=== PATIENT | female | born 1980 | race African-American/Black ===

== ENCOUNTER 2019-08-24 20:07 | Emergency (ER) | payer SELFPAY ==
[2019-08-24] MEDS ORDERED: Lidocaine 1% w/Epinephrine 1:100K 20 ML VIAL ONE (21:14)
[2019-08-24] MEDS ORDERED: Adacel (T-DAP) 0.5 ML SYRINGE ONE (21:54)
== END 2019-08-24 22:38 | disposition home or self-care (01) ==
LOC: ERS 20:07
DX: L02.211 Cutaneous abscess of abdominal wall (principal); F17.210 Nicotine dependence, cigarettes, uncomplicated
CPT/HCPCS: 10060; 87070; 87205; 90471; 90715

== ENCOUNTER 2019-08-25 16:24 | Emergency (ER) | payer SELFPAY | END 2019-08-25 17:10 | disposition home or self-care (01) | LOC: ERS 16:24 | DX: Z48.817 Encounter for surgical aftercare following surgery on the skin and subcutaneous tissue (principal); Z71.6 Tobacco abuse counseling; F17.210 Nicotine dependence, cigarettes, uncomplicated | CPT/HCPCS: 99282 ==

== ENCOUNTER 2019-08-27 13:05 | Emergency (ER) | payer SELFPAY | END 2019-08-27 14:55 | disposition home or self-care (01) | LOC: ERS 13:05 | DX: Z48.01 Encounter for change or removal of surgical wound dressing (principal); F17.210 Nicotine dependence, cigarettes, uncomplicated; Z71.6 Tobacco abuse counseling | CPT/HCPCS: 99406 ==

== ENCOUNTER 2019-08-29 11:04 | Emergency (ER) | payer SELFPAY | END 2019-08-29 11:33 | disposition home or self-care (01) | LOC: ERS 11:04 | DX: Z48.01 Encounter for change or removal of surgical wound dressing (principal); F17.210 Nicotine dependence, cigarettes, uncomplicated; Z79.899 Other long term (current) drug therapy | CPT/HCPCS: 99282 ==

== ENCOUNTER 2019-09-04 23:09 | Emergency (ER) | payer SELFPAY | END 2019-09-04 23:38 | disposition home or self-care (01) | LOC: ERS 23:09 | DX: Z48.817 Encounter for surgical aftercare following surgery on the skin and subcutaneous tissue (principal); F17.210 Nicotine dependence, cigarettes, uncomplicated | CPT/HCPCS: 99282 ==

== ENCOUNTER 2023-11-24 04:09 | Inpatient (IN) | payer SELFPAY ==
[2023-11-24] MEDS ORDERED: Ondansetron PF 4 MG/2 ML Vial IVP PRN (04:46)
[2023-11-24] MEDS ORDERED: Ondansetron ODT 4 MG TAB PO PRN (04:46)
[2023-11-24] MEDS: Acetaminophen 325 MG TAB PO PRN (05:19)
[2023-11-24 05:26] VITALS: BMI 34.8
[2023-11-24 06:12] LABS: Anion Gap 13 mmol/L (10-20); BUN (Urea Nitrogen) 5 mg/dL (7.0-18.7); Calc. Creatinine Clearance 210 mL/min (70-130); Calcium 8.4 mg/dL (7.8-10.44); Carbon Dioxide 23 mmol/L (22-29); Chloride 108 mmol/L (98-107); Estimated GFR 116; Glucose 91 mg/dL (70-105); Potassium 3.5 mmol/L (3.5-5.1); Sodium 140 mmol/L (136-145)
[2023-11-24] MEDS: Famotidine 20 MG TAB PO SCH (07:48)
[2023-11-24 08:05] LABS: #Basophils 0.03 10x3/uL (0.0-0.2); %Basophils 0.4 % (0.0-1.0); %Eosinophils 2.6 % (0.0-10.0); %Lymphocytes 25.4 % (21.0-51.0); %Neutrophils 64.3 % (42.0-75.0); Hemoglobin 6.5 g/dL (12.0-16.0); Mean Corpuscular HGB CONC 27.1 g/dL (32.0-36.0); Mean Corpuscular Hemoglobin 18.8 pg (27.0-31.0); Mean Corpuscular Volume 69.6 fL (78.0-98.0); Mean Platelet Volume 9.8 fL (7.4-10.4); Platelet Count 360 10x3/uL (130-400); RBC Distribution Width 24.2 % (11.5-14.5); Red Blood Cell (RBC) Count 3.45 mill/uL (4.20-5.40)
[2023-11-24] MEDS: Famotidine/PF 20 mg/2ml Vial SLOW IVP SCH (08:19)
[2023-11-24] MEDS: Sodium Ferric Gluconate 250 MG in Sodium Chloride 0.9% 250 ML 250 ML IVPB SCH (08:19)
[2023-11-24 08:47] LABS: Anisocytosis SLIGHT = 6-15 cells HPF (0-5); Hypochromia MODERATE=16-30 cells HPF (0-5); Microcytosis SLIGHT = 6-15 cells HPF (0-5); Platelet Adequacy Comment Platelets Normal; Polychromasia MODERATE = 3-4 cells HPF (0-2); Schistocytes SLIGHT = 2-5 cells HPF (0-1); Target Cells SLIGHT = 2-5 cells HPF (0-1)
[2023-11-24] MEDS ORDERED: fentaNYL PF 100 MCG/2 ML SYRINGE ONE (11:10)
[2023-11-24] MEDS ORDERED: PROPOFOL 20 ML ONE ×2 (11:10→12:27)
[2023-11-24] MEDS ORDERED: Midazolam HCl 2 mg/2 ml Vial ONE (11:10)
[2023-11-24] MEDS ORDERED: Bacitracin Zinc Ointment 30 gm TUBE ONE (12:09)
[2023-11-24] MEDS ORDERED: Bupivacaine PF 0.5% 30 ML VIAL ONE (12:09)
[2023-11-24] MEDS ORDERED: Lidocaine 1% (PF) 30 ML VIAL ONE (12:28)
[2023-11-24] MEDS ORDERED: Ondansetron PF 4 MG/2 ML Vial ONE (13:13)
[2023-11-24] MEDS ORDERED: Clindamycin/D5W 900 mg/50 ml Premix Bag ONE (13:39)
[2023-11-24] MEDS ORDERED: Cyclobenzaprine 10 MG TAB ONE (13:39)
[2023-11-24] MEDS ORDERED: Tamsulosin HCl 0.4 MG CAP ONE (13:41)
[2023-11-24 14:36] LABS: #Basophils Less than 0.03 10x3/uL (0.0-0.2); %Basophils 0.2 % (0.0-1.0); %Eosinophils 1.8 % (0.0-10.0); %Lymphocytes 12.9 % (21.0-51.0); %Monocytes 5.5 % (0.0-10.0); %Neutrophils 79.1 % (42.0-75.0); Hematocrit 25.1 % (36.0-47.0); Hemoglobin 6.9 g/dL (12.0-16.0); Mean Corpuscular HGB CONC 27.5 g/dL (32.0-36.0); Mean Corpuscular Hemoglobin 18.6 pg (27.0-31.0); Mean Corpuscular Volume 67.7 fL (78.0-98.0); Mean Platelet Volume 9.6 fL (7.4-10.4); Platelet Count 346 10x3/uL (130-400); RBC Distribution Width 23.2 % (11.5-14.5); Red Blood Cell (RBC) Count 3.71 mill/uL (4.20-5.40)
[2023-11-24 15:01] LABS: Anisocytosis SLIGHT = 6-15 cells HPF (0-5); Hypochromia SLIGHT = 6-15 cells HPF (0-5); Microcytosis SLIGHT = 6-15 cells HPF (0-5); Platelet Adequacy Comment Platelets Normal; Poikilocytosis SLIGHT = 6-15 cells HPF (0-5); Polychromasia SLIGHT = 2-3 cells HPF (0-2); Spherocytes SLIGHT = 1-5 cells HPF (None Seen)
[2023-11-24 17:19] VITALS: BMI 34.8
[2023-11-24] MEDS: traMADol HCl 50 MG TAB PO PRN (21:06)
[2023-11-25 05:35] LABS: Anion Gap 11 mmol/L (10-20); BUN (Urea Nitrogen) 5 mg/dL (7.0-18.7); Calc. Creatinine Clearance 191 mL/min (70-130); Calcium 8.8 mg/dL (7.8-10.44); Carbon Dioxide 25 mmol/L (22-29); Chloride 108 mmol/L (98-107); Estimated GFR 114; Glucose 104 mg/dL (70-105); Potassium 3.5 mmol/L (3.5-5.1); Sodium 140 mmol/L (136-145)
[2023-11-25 06:37] LABS: #Basophils Less than 0.03 10x3/uL (0.0-0.2); %Basophils 0.1 % (0.0-1.0); %Eosinophils 2.9 % (0.0-10.0); %Monocytes 6.3 % (0.0-10.0); %Neutrophils 71.2 % (42.0-75.0); Hematocrit 23.3 % (36.0-47.0); Hemoglobin 6.3 g/dL (12.0-16.0); Mean Corpuscular Hemoglobin 19.3 pg (27.0-31.0); Mean Corpuscular Volume 71.3 fL (78.0-98.0); Mean Platelet Volume 10.1 fL (7.4-10.4); Platelet Count 310 10x3/uL (130-400); RBC Distribution Width 23.1 % (11.5-14.5); Red Blood Cell (RBC) Count 3.27 mill/uL (4.20-5.40)
[2023-11-25] MEDS: Vancomycin (BATCH) 1.25 GM in Premix 1 BAG IVPB SCH (09:14)
[2023-11-25] MEDS: traMADol HCl 50 MG TAB PO PRN (20:23)
[2023-11-26 05:43] LABS: Vancomycin, Trough 8.9 ug/mL
[2023-11-26 07:37] LABS: Hematocrit 27.7 % (36.0-47.0); Hemoglobin 7.5 g/dL (12.0-16.0); Mean Corpuscular HGB CONC 27.1 g/dL (32.0-36.0); Mean Corpuscular Hemoglobin 20.4 pg (27.0-31.0); Mean Corpuscular Volume 75.5 fL (78.0-98.0); Mean Platelet Volume 9.6 fL (7.4-10.4); Platelet Count 259 10x3/uL (130-400); RBC Distribution Width 25.8 % (11.5-14.5); Red Blood Cell (RBC) Count 3.67 mill/uL (4.20-5.40)
[2023-11-26] MEDS: Amlodipine 5 MG TAB PO SCH (08:03)
[2023-11-26 08:25] LABS: Anisocytosis MODERATE=16-30 cells HPF (0-5); Band 3 % (5-11); Eosinophils 2 % (0-10); Hypochromia MODERATE=16-30 cells HPF (0-5); Lymphocytes 10 % (21-51); Microcytosis SLIGHT = 6-15 cells HPF (0-5); Monocytes 1 % (0-10); Neutrophil 82 % (42-75); Ovalocytes SLIGHT = 2-5 cells HPF (0-1); Platelet Adequacy Comment Platelets Normal; Poikilocytosis MODERATE=16-30 cells HPF (0-5); Polychromasia MARKED = >4 cells HPF (0-2)
[2023-11-26 09:27] LABS: Anion Gap 15 mmol/L (10-20); BUN (Urea Nitrogen) 5 mg/dL (7.0-18.7); Calc. Creatinine Clearance 197 mL/min (70-130); Calcium 8.8 mg/dL (7.8-10.44); Carbon Dioxide 23 mmol/L (22-29); Chloride 105 mmol/L (98-107); Estimated GFR 115; Glucose 97 mg/dL (70-105); Potassium 3.6 mmol/L (3.5-5.1); Sodium 139 mmol/L (136-145)
[2023-11-26] MEDS: Vancomycin (BATCH) 1.25 GM in Premix 1 BAG IVPB SCH (16:39)
[2023-11-27 08:07] LABS: Anion Gap 11 mmol/L (10-20); BUN (Urea Nitrogen) 5 mg/dL (7.0-18.7); Calc. Creatinine Clearance 202 mL/min (70-130); Calcium 8.9 mg/dL (7.8-10.44); Carbon Dioxide 27 mmol/L (22-29); Chloride 107 mmol/L (98-107); Estimated GFR 115; Glucose 99 mg/dL (70-105); Potassium 3.9 mmol/L (3.5-5.1); Sodium 141 mmol/L (136-145); Vancomycin, Random 20.1 ug/mL (See Comment)
[2023-11-27] MEDS: hydrALAZINE 25 MG TAB PO PRN (15:50)
[2023-11-27] MEDS ORDERED: Vancomycin 1 GM in Premix 1 BAG IVPB SCH (16:00)
[2023-11-27] MEDS: Doxycycline 100 MG CAP PO SCH (19:48)
[2023-11-28] MEDS: hydrALAZINE 25 MG TAB PO SCH (06:27)
[2023-11-28] MEDS: Lisinopril 10 MG TAB PO SCH (08:24)
[2023-11-28] MEDS: Amlodipine 10 MG TAB PO SCH (08:24)
[2023-11-28] MEDS: cloNIDine 0.1 MG TAB PO SCH (08:24)
[2023-11-28] MEDS ORDERED: Bacitracin Zinc Ointment 30 gm TUBE ONE (10:08)
[2023-11-28] MEDS ORDERED: Vancomycin 1 GM VIAL ONE (10:08)
[2023-11-28] MEDS ORDERED: Bupivacaine PF 0.5% 30 ML VIAL ONE (10:08)
[2023-11-28] MEDS ORDERED: Vancomycin 1 GM/200 ML (FROZEN) BAG ONE (10:30)
[2023-11-28] MEDS ORDERED: PROPOFOL 20 ML ONE ×2 (10:41→10:50)
[2023-11-28] MEDS ORDERED: Midazolam HCl 2 mg/2 ml Vial ONE (10:55)
[2023-11-28] MEDS: Cephalexin 250 MG CAP PO SCH (17:27)
[2023-11-28] MEDS: Clindamycin 150 MG CAP PO SCH (20:56)
[2023-11-28] MEDS ORDERED: Cephalexin 250 MG CAP PO SCH (21:00)
[2023-11-29 13:27] VITALS: BP 155/95
[2023-11-29 14:39] VITALS: TEMP 98.1
== END 2023-11-29 15:30 | disposition home or self-care (01) | DRG 982 ==
LOC: T4-B 04:09 → OBSVTOIN 11-25 16:17
PROVIDERS: ADMIT Student in an Organized Health Care Education/Training Program; ATTEND Internal Medicine
PROC: 0R9W0ZZ Drainage of Right Finger Phalangeal Joint, Open Approach (ICD-10-PCS; principal; 2023-11-24)
PROC: 0RBW0ZX Excision of Right Finger Phalangeal Joint, Open Approach, Diagnostic (ICD-10-PCS; 2023-11-24)
PROC: 30233N1 Transfusion of Nonautologous Red Blood Cells into Peripheral Vein, Percutaneous Approach (ICD-10-PCS; 2023-11-25)
DX: L03.011 Cellulitis of right finger (principal); L02.511 Cutaneous abscess of right hand; F17.210 Nicotine dependence, cigarettes, uncomplicated; D50.9 Iron deficiency anemia, unspecified; N92.0 Excessive and frequent menstruation with regular cycle; B95.61 Methicillin susceptible Staphylococcus aureus infection as the cause of diseases classified elsewhere; Z98.891 History of uterine scar from previous surgery
CPT/HCPCS: 36415; 36430; 80048; 80202; 85025; 86850; 86900; 86901; 87070; 87077; 87186; 87205; 88304; 96374; 96375; 96376; G0378; J0665; J2001; J2250; J2405; J2704; J2916; J3370; J3370-JW; J3490; J7050; P9016; S0028